=== PATIENT | female | born 1955 | race Caucasian/White ===

== ENCOUNTER 2018-09-25 08:29 | Outpatient (CLI) | payer OTHER ==
[~2018-09-25 08:29] MED LIST: ATENOLOL100 MG; CYCLOBENZAPRINE10 MG; DOLOGESIC CAPLE1 TAB; GAVISCON EXTRA355 ML; LISINOPRIL40 MG; OMEPRAZOLE10 MG; OMEPRAZOLE20 MG; ULTRACET PO; ZANTAC300 MG
== END 2018-09-25 08:35 | disposition home or self-care (01) ==
LOC: RX STUDY 08:29
DX: R13.10 Dysphagia, unspecified (principal)

== ENCOUNTER 2018-10-02 12:50 | Outpatient (CLI) | payer OTHER | END 2018-10-02 15:21 | disposition home or self-care (01) | LOC: NUCLEAR 12:50 | DX: N18.4 Chronic kidney disease, stage 4 (severe) (principal) | CPT/HCPCS: 78708; A9539; J1940 ==